=== PATIENT | female | born 1955 | race Caucasian/White ===

== ENCOUNTER 2016-04-21 08:13 | Day surgery (SDC) | payer OTHER ==
[~2016-04-21] VITALS: Ht 162.6 cm; Wt 97.7 kg
[~2016-04-21 08:13] MED LIST: ASPI81TA82 PO; MELO15TA2 PO; TRIA0.1212 PO; TYLE500T PO
[2016-04-21 08:35] VITALS: BP 173/94; PULSE 75; RESP 20; TEMP 98.3; O2SAT 96
[2016-04-21] MEDS ORDERED: LISI-515 PO (08:47)
[2016-04-21] MEDS ORDERED: TRIA1TAB21 PO (08:47)
[2016-04-21] MEDS ORDERED: SODIUM CHLORIDE 0.9% 1000 ML IV SCH (09:30)
[2016-04-21] MEDS ORDERED: SODIUM CHLOR 0.9% 1000 ML INJ 1,000 ML IV SCH (09:45)
[2016-04-21] MEDS ORDERED: LEVOFLOXACIN 500 MG PREMIX INJ 100 ML IV SCH (09:45)
[2016-04-21] MEDS ORDERED: fentaNYL CITRATE 250 MCG/5 ML AMP ONE (10:36)
[2016-04-21] MEDS ORDERED: MIDAZOLAM HCL 5 MG/5 ML VIAL ONE (10:36)
[2016-04-21] MEDS ORDERED: LIDOCAINE 1%/EPINEPHrine 1:100,000 SOLN 20 ML VIAL ONE (10:54)
[2016-04-21 11:40] VITALS: BP 123/72; PULSE 84; RESP 18; TEMP 97.9; O2SAT 94
[2016-04-21 11:55] VITALS: BP 138/62; PULSE 92; RESP 18; O2SAT 94
--- NOTE | 2016-04-21 12:05 | PD.RAD ---
Post Procedure Progress Note Pre Procedure Diagnosis: (1) Porphyria Post Procedure Diagnosis: (1) Porphyria Procedure Date: Apr 21, 2016 Supervising Radiologist: Saqib Murray Proceduralist/Assist: Lorenza Alcaraz RT(R), Ashley Kumar RT(R)() Anesthesia: Local, Analgesia, Conscious Sedation Plan of Activity Patient to Unit: ROPU Patient Condition: Good See PACS Report for procedural detail/treatment Central Venous Access Device Procedure 1 Right Infusaport Placement single lumen Italian: 8 Saqib Murray MD Apr 21, 2016 12:05
[2016-04-21] MEDS ORDERED: SODIUM CHLORIDE 0.9% FLUSH 5 ML FLUSH IVF PRN (12:15)
[2016-04-21 12:25] VITALS: BP 116/64; PULSE 83; RESP 18; O2SAT 94
[2016-04-21 12:55] VITALS: BP 104/62; PULSE 77; RESP 20; O2SAT 94
--- NOTE | 2016-04-22 17:33 | RADRPT ---
EXAM DATE/TIME: 04/21/2016 11:19 [place] COMPARISON: No previous studies available for comparison. INDICATIONS : Patient with acute intermittent porphyria in need of [id number]-[id number] placement. MEDICAL HISTORY : HTN, Blood clots, Arthritis, Migraines, Intermittent porphyria SURGICAL HISTORY : Cholecystectomy, Upper endoscopy, Hysterectomy, Appendectomy, Port placement and removal ENCOUNTER: Subsequent ACUITY: 1 month PAIN SCORE: 0/10 FLUORO TIME: 0.5 minutes SEDATION TIME: 30 minutes ACCESS: Right internal jugular vein SEDATION: 1.) 4 mg midazolam (Versed) IV 2.) 200 mcg fentanyl (Sublimaze) IV Prophylactic antibiotics were administered with appropriate pre-procedure timing. Vancomycin within 2 hours of procedure, Ancef (or alternative) within 1 hour of procedure. DEVICE: 1. 8 Green[place]ic single lumen Bard Power Port PROCEDURE : 1. Continuous pulse oximetry and EKG monitoring. 2. Intravenous conscious sedation. 3. Ultrasound guidance for venous access. 4. Fluoroscopic guided implantable central venous port placement. The patient was placed supine. The neck was prepped in sterile fashion. Full sterile technique was u sed, including cap, mask, sterile gloves and gown, and a large sterile sheet. Hand hygiene and 2% ch lorhexidine Betadine was utilized per protocol for cutaneous antisepsis with appropriate dry time for site. The skin and subcutaneous tissues were infiltrated with local anesthetic solution. Under direct ultrasound guidance, central venous access was accomplished in the targeted vessel. The ultrasound images depicting access guidance were stored and saved to PACS for permanent record. A s ubcutaneous pocket was created using blunt dissection. The port was introduced to the pocket. The c atheter tubing was fed through a subcutaneous tunnel to the venotomy site. The catheter tubing was c ut to a suitable length and then was introduced through a valved Peel-Away sheath and positioned with catheter tubing tip at the cavo-atrial junction level. The pocket incision was closed with subcutic ular Vicryl suture. Steri-Strips were applied. The port was flushed and locked with heparin solutio n per protocol. Sterile dressing was applied to the site. The patient tolerated the procedure well. Conscious sedation was performed with the prescribed dosages and duration as above. The patient julia ated the procedure well and there were no complications. EKG and oximetry remained stable throughout the procedure. The patient was sent to post anesthesia recovery in stable condition. CONCLUSION: Uncomplicated ultrasound and fluoroscopic guided implanted central venous port catheter placement as described in detail above. An 8 Green[place]ic Power port was placed. Saqib Murray MD on April 22, 2016 at 17:31 Board Certified Radiologist. This report was verified electronically.
== END 2016-04-21 13:35 | disposition home or self-care (01) ==
LOC: HROP 08:13 → HRIP 08:14 → HROP 13:35
PROVIDERS: ATTEND Internal Medicine Hematology & Oncology
DX: Z45.2 Encounter for adjustment and management of vascular access device (principal); E80.21 Acute intermittent (hepatic) porphyria; I10 Essential (primary) hypertension
CPT/HCPCS: 36561; 76937; 77001; 99152; 99153; C1788; J1642; J1956; J2250; J3010; J7030